=== PATIENT | male | born 1960 | race Caucasian/White ===

== ENCOUNTER 2017-10-01 14:29 | Emergency (ER) | payer OTHER ==
[~2017-10-01] VITALS: Ht 185.4 cm; Wt 72.9 kg
[~2017-10-01 14:29] MED LIST: AZELASTINE137 MCG/0. BOTH NARES; BENTYL20 MG PO; CALAN80 MG PO; DEPAKOTE ER250 MG PO; DILANTIN PO; LAMICTAL100 MG PO; LAMOTRIGINE25 MG PO; LEXAPRO5 MG PO; LITE COAT ASPI325 M1 PO; MOBIC15 MG PO; MOTRIN800 MG PO; OMEPRAZOLE40 M1 PO; PERCOCET 5/31 TABLET PO; PROMETHAZINE HC25 M1 PO; REMERON15 M2 PO; TYLENOL WITH C1 EACH PO; ULTRAM50 MG PO; VALPROIC ACID250 MG PO
[2017-10-01 16:48] VITALS: BP 155/72
== END 2017-10-01 16:50 | disposition home or self-care (01) ==
LOC: EME 14:29
DX: R05 Cough (principal); M94.0 Chondrocostal junction syndrome [Tietze]; F32.9 Major depressive disorder, single episode, unspecified; G80.9 Cerebral palsy, unspecified; R56.9 Unspecified convulsions
CPT/HCPCS: 71020; 93005; 99281; 99284